=== PATIENT | female | born 1940 | race Caucasian/White ===

== ENCOUNTER → 2016-11-03 | Outpatient (CLI) | payer MEDICARE, OTHER | END | disposition home or self-care (01) | LOC: CFH 16:34 | PROVIDERS: ATTEND Internal Medicine | DX: J90 Pleural effusion, not elsewhere classified (principal); I48.91 Unspecified atrial fibrillation | CPT/HCPCS: 71020 ==

== ENCOUNTER → 2016-11-04 | Outpatient (CLI) | payer MEDICARE, OTHER ==
[2016-11-04 09:34] LABS: BLOOD UREA NITROGEN 22 mg/dL (7-18)
[2016-11-04 09:39] LABS: ASPARTATE AMINO TRANSFERASE 21 U/L (15-37)
[2016-11-04 09:40] LABS: IS PT STATUS REG ER OR PRE ER? NO
== END | disposition home or self-care (01) ==
LOC: CFH 08:36
PROVIDERS: ATTEND Internal Medicine
DX: R07.9 Chest pain, unspecified (principal)
CPT/HCPCS: 36415; 80053; 84484; 85025

== ENCOUNTER → 2016-11-05 | Outpatient (CLI) | payer MEDICARE, OTHER ==
[~2016-11-05] MED LIST: OMNIPAQUE 350 MG/ML, 100ML BOTTLE ONE
== END | disposition home or self-care (01) ==
LOC: RAD 09:37
PROVIDERS: ATTEND Physician Assistant
DX: J98.11 Atelectasis (principal); J90 Pleural effusion, not elsewhere classified; I28.1 Aneurysm of pulmonary artery; I51.7 Cardiomegaly
CPT/HCPCS: 71275; Q9967

== ENCOUNTER → 2016-11-15 | Outpatient (CLI) | payer MEDICARE, OTHER | END | disposition home or self-care (01) | LOC: CFH 13:32 | PROVIDERS: ATTEND Physician Assistant | DX: I08.3 Combined rheumatic disorders of mitral, aortic and tricuspid valves (principal); I37.1 Nonrheumatic pulmonary valve insufficiency; I48.2 Chronic atrial fibrillation; E78.2 Mixed hyperlipidemia; D64.9 Anemia, unspecified; G89.29 Other chronic pain; R94.31 Abnormal electrocardiogram [ECG] [EKG] | CPT/HCPCS: 93306 ==

== ENCOUNTER → 2016-11-17 | Outpatient (CLI) | payer MEDICARE, OTHER ==
[~2016-11-17] MED LIST changes: -OMNIPAQUE 350 MG/ML, 100ML BOTTLE ONE; +REGADENOSON 0.4 MG/5 ML SYRINGE ONE
== END | disposition home or self-care (01) ==
LOC: CFH 07:52
PROVIDERS: ATTEND Internal Medicine
DX: R94.31 Abnormal electrocardiogram [ECG] [EKG] (principal); I48.91 Unspecified atrial fibrillation; E55.9 Vitamin D deficiency, unspecified; D64.9 Anemia, unspecified; E78.2 Mixed hyperlipidemia
CPT/HCPCS: 78452; 93017; A9502; J2785

== ENCOUNTER 2017-07-11 06:41 | Observation (INO) | payer MEDICARE, OTHER ==
[2017-07-08 09:26] VITALS: BP 124/65
[2017-07-08 10:01] LABS: BASOPHILS # (AUTO) 0.02 x10^3/uL (0-0.1); BASOPHILS % (AUTO) 0 % (0-1); EOSINOPHILS # (AUTO) 0.12 x10^3/uL (0-0.4); EOSINOPHILS % (AUTO) 2 % (1-7); LYMPHOCYTES # (AUTO) 1.31 x10^3/uL (1-3.4); LYMPHOCYTES % (AUTO) 21 % (22-44); MD NO; MEAN CORPUSCULAR HEMOGLOBIN 32.2 pg (27.0-34.8); MEAN CORPUSCULAR HGB CONC 33.7 g/dL (32.4-35.8); MEAN CORPUSCULAR VOLUME 95.5 fL (80-100); MEAN PLATELET VOLUME 8.1 fL (7.4-10.4); MONOCYTES # (AUTO) 0.61 x10^3/uL (0.2-0.8); MONOCYTES % (AUTO) 10 % (2-9); NEUTROPHILS # (AUTO) 4.22 x10^3/uL (1.8-6.8); NEUTROPHILS % (AUTO) 67 % (42-75); PLATELET COUNT 276 x10^3/uL (130-400); RED BLOOD COUNT 4.52 x10^6/uL (3.82-5.3); RED CELL DISTRIBUTION WIDTH 13.4 % (9.6-15.2)
[2017-07-08 10:09] LABS: INTERNATIONAL NORMALIZED RATIO 1.09 (0.93-1.1); PROTHROMBIN TIME 11.3 Seconds (9.6-11.5)
[2017-07-08 10:13] LABS: ALANINE AMINOTRANSFERASE 20 U/L (12-78); ALBUMIN 3.9 g/dL (3.4-5.0); ANION GAP 6 mmol/L (5-15); CALCIUM 9.4 mg/dL (8.5-10.1); CHLORIDE 106 mmol/L (98-107); CREATININE 0.73 mg/dL (0.55-1.02)
[2017-07-08 10:15] LABS: ALKALINE PHOSPHATASE 103 U/L (45-117); BILIRUBIN,TOTAL 0.4 mg/dL (0.2-1.0); TOTAL PROTEIN 8.5 g/dL (6.4-8.2)
[~2017-07-11] VITALS: Ht 167.6 cm; Wt 59.9 kg
[~2017-07-11 06:41] MED LIST changes: +APIX5TAB PO; +ASPI-496 PO; +CALC1CAP8 PO; +DILT120C80 PO; +MULT-658 PO; +RED600CA2 PO; -REGADENOSON 0.4 MG/5 ML SYRINGE ONE; +RIVA20TA PO
[2017-07-11] MEDS ORDERED: SODIUM CHLORIDE 0.9% 1,000 ML IV SCH (06:44)
[2017-07-11] MEDS ORDERED: FENTANYL PF 250 MCG/5ML ONE (07:46)
[2017-07-11] MEDS ORDERED: MIDAZOLAM 1 MG/ML, 2ML ONE (07:46)
[2017-07-11] MEDS ORDERED: SUCCINYLCHOLINE 20 MG/ML, 10ML ONE (08:15)
[2017-07-11] MEDS ORDERED: ONDANSETRON 2MG/ML, 2ML ONE (08:15)
[2017-07-11] MEDS ORDERED: DEXAMETHASONE 4 MG/ML, 1ML ONE (08:15)
[2017-07-11] MEDS ORDERED: PROPOFOL 10 MG/ML, 20ML ONE (08:15)
[2017-07-11] MEDS ORDERED: LIDOCAINE 2%, 20ML ONE (08:28)
[2017-07-11] MEDS ORDERED: PROTAMINE SULFATE 10 MG/ML, 5ML ONE (09:47)
[2017-07-11] MEDS ORDERED: ZOLPIDEM 5MG TABLET PO PRN (10:00)
[2017-07-11] MEDS ORDERED: ACETAMINOPHEN 325 MG TABLET PO PRN ×2 (10:00→11:00)
[2017-07-11] MEDS ORDERED: ONDANSETRON 2MG/ML, 2ML IVPush PRN (11:00)
[2017-07-11] MEDS ORDERED: LORazepam 2 MG/ML, 1ML IVPush PRN (11:00)
[2017-07-11] MEDS ORDERED: OXYcodone 5 MG/5 ML ORAL.SOL UDC PO PRN (11:00)
[2017-07-11] MEDS ORDERED: LABETALOL 5MG/ML, 20ML IV PRN (11:00)
[2017-07-11] MEDS ORDERED: FENTANYL PF 100 MCG/2ML IV PRN (11:00)
[2017-07-11] MEDS ORDERED: EPHEDRINE 50 MG/ML, 1ML IVPush PRN (11:00)
[2017-07-11] MEDS ORDERED: MIDAZOLAM 1 MG/ML, 2ML IV PRN (11:00)
[2017-07-11] MEDS ORDERED: HYDROmorphone 1 MG/ML, 1ML IV PRN (11:00)
[2017-07-11] MEDS ORDERED: APIXABAN 5 MG TABLET PO ONE (11:00)
[2017-07-11] MEDS ORDERED: PROMETHAZINE 25 MG/ML, 1ML IV PRN (11:00)
[2017-07-11 14:02] VITALS: BP 94/58
[2017-07-11 15:26] VITALS: BP 94/51
[2017-07-11 18:23] VITALS: BP 115/71
[2017-07-11] MEDS: APIXABAN 5 MG TABLET PO SCH (19:56)
[2017-07-12 02:59] VITALS: BP 150/76
[2017-07-12] MEDS ORDERED: MULTIVITAMINS WITH IRON TABLET PO ONE (08:00)
[2017-07-12] MEDS ORDERED: CALCIUM CARBONATE 500 MG TABLET ONE (08:01)
[2017-07-12 08:10] VITALS: BP 142/72
[2017-07-12] MEDS: APIXABAN 5 MG TABLET PO SCH (08:21)
[2017-07-12] MEDS ORDERED: TEMPLATE NON-FORMULARY MED. (Red Yeast Rice** 600 MG) PO SCH (09:00)
[2017-07-12] MEDS ORDERED: CALCIUM/VITAMIN D3 250-125 TABLET PO SCH (09:00)
[2017-07-12] MEDS ORDERED: MULTIVITAMIN 1 TABLET PO SCH (09:00)
== END 2017-07-12 10:23 | disposition home or self-care (01) ==
LOC: CACL 06:41 → ORIP 09:52 → 5SO 11:49 → DCLOUNGE 07-12 10:17
PROVIDERS: ADMIT Internal Medicine Cardiovascular Disease; ATTEND Internal Medicine Cardiovascular Disease
DX: I48.91 Unspecified atrial fibrillation (principal); I48.92 Unspecified atrial flutter
CPT/HCPCS: 36415; 71046; 80053; 85025; 85347; 85610; 85730; 93308; 93321; 93325; 93613; 93655; 93656; 93662; C1730; C1731; C1732; C1759; C1766; C1893; C1894; G0378; J0330; J1100; J2250; J2405; J2704; J2720; J3010; J3490